=== PATIENT | female | born 1990 | race Two or more races ===

== ENCOUNTER 2018-10-09 23:03 | Emergency (ER) | payer OTHER ==
[~2018-10-09] VITALS: Ht 160 cm; Wt 40.8 kg
[~2018-10-09 23:03] MED LIST: ZANTAC150 M3 PO
[2018-10-09] MEDS ORDERED: PEPCID20 MG (23:14)
[2018-10-09] MEDS ORDERED: TEGRETOL XR100 MG (23:14)
== END 2018-10-10 08:32 | disposition home or self-care (01) ==
LOC: ER 23:03
DX: K52.89 Other specified noninfective gastroenteritis and colitis (principal)

== ENCOUNTER 2021-03-17 22:33 | Emergency (ER) | payer OTHER ==
[~2021-03-17] VITALS: Ht 149.9 cm; Wt 43.5 kg
[~2021-03-17 22:33] MED LIST changes: +PEPCID20 MG; +TEGRETOL XR100 MG
[2021-03-17] MEDS ORDERED: BENADRYL CREAM ×2 (22:51→22:53)
[2021-03-17] MEDS ORDERED: BENADRYL25 MG ×2 (22:51→22:54)
== END 2021-03-18 02:00 | disposition home or self-care (01) ==
LOC: ER 22:33
DX: L27.2 Dermatitis due to ingested food (principal); T78.01XA Anaphylactic reaction due to peanuts, initial encounter; T78.49XA Other allergy, initial encounter